=== PATIENT | female | born 1970 | race Caucasian/White ===

== ENCOUNTER 2021-03-15 11:27 | Emergency (ER) | payer SELFPAY ==
[2021-03-15] MEDS ORDERED: TORADOL PO (13:47)
[2021-03-15] MEDS ORDERED: PERCOCET 5/325M1 TAB PO ×2 (13:47→15:46)
[2021-03-15 14:37] VITALS: BP 125/70
[2021-03-15] MEDS ORDERED: NARCAN4 MG/0.1 M ×2 (15:46→15:59)
== END 2021-03-15 14:37 | disposition home or self-care (01) | DRG 563 ==
LOC: ED 11:27
DX: S42.251A Displaced fracture of greater tuberosity of right humerus, initial encounter for closed fracture (principal); F17.210 Nicotine dependence, cigarettes, uncomplicated; W10.9XXA Fall (on) (from) unspecified stairs and steps, initial encounter